=== PATIENT | female | born 1980 | race Hispanic/Latino ===

== ENCOUNTER 2021-08-14 15:34 | Emergency (ER) | payer OTHER ==
[~2021-08-14] VITALS: Ht 152.4 cm; Wt 81.6 kg
[2021-08-14 16:48] LABS: BASOPHILS % (AUTO) 0.4 % (0.0-5.0); HEMATOCRIT 37.4 % (36-48); LYMPHOCYTES % (AUTO) 24.2 % (21.0-51.0); MEAN CORPUSCULAR HEMOGLOBIN 29.1 pg (27.0-33.0); MEAN CORPUSCULAR HGB CONC 33.2 g/dL (32.0-36.0); MEAN CORPUSCULAR VOLUME 87.8 fL (79-99); MONOCYTES % (AUTO) 6.4 % (3.0-13.0); NEUTROPHILS % (AUTO) 64.6 % (40.0-77.0); PLATELET COUNT (AUTO) 207 K/uL (130-400); RED BLOOD CELL COUNT(AUTO) 4.26 MIL/uL (4.00-5.50); RED CELL DISTRIBUTION WIDTH 13.4 % (11.0-15.5); WHITE BLOOD COUNT (AUTO) 9.9 K/uL (4.8-10.8)
[2021-08-14 17:00] LABS: CREATININE 0.6 mg/dL (0.5-1.5); POTASSIUM 3.7 mmol/L (3.5-5.1)
[2021-08-14 17:29] LABS: ALBUMIN 3.7 g/dL (3.5-5.0); BILIRUBIN,TOTAL 0.3 mg/dL (0.2-1.0); TOTAL PROTEIN, SERUM 7.3 g/dL (6.0-8.3)
[2021-08-14] MEDS ORDERED: PNV1TABL17 PO (18:06)
[2021-08-14 18:07] VITALS: BP 115/67
== END 2021-08-14 18:22 | disposition home or self-care (01) ==
LOC: EDH 15:34
DX: O20.9 Hemorrhage in early pregnancy, unspecified (principal); Z3A.01 Less than 8 weeks gestation of pregnancy; Z90.49 Acquired absence of other specified parts of digestive tract
CPT/HCPCS: 36415; 76801; 80053; 84702; 85025; 86850; 86900; 86901

== ENCOUNTER 2021-10-02 06:19 | Day surgery (SDC) | payer MEDICAID, OTHER ==
[2021-10-01 16:42] LABS: BASOPHILS % (AUTO) 0.3 % (0.0-5.0); EOSINOPHILS % (AUTO) 3.5 % (0.0-8.0); HEMATOCRIT 39.5 % (36-48); LYMPHOCYTES % (AUTO) 20.9 % (21.0-51.0); MEAN CORPUSCULAR HEMOGLOBIN 29.1 pg (27.0-33.0); MEAN CORPUSCULAR HGB CONC 33.2 g/dL (32.0-36.0); MEAN CORPUSCULAR VOLUME 87.8 fL (79-99); MONOCYTES % (AUTO) 5.4 % (3.0-13.0); NEUTROPHILS % (AUTO) 69.5 % (40.0-77.0); PLATELET COUNT (AUTO) 218 K/uL (130-400); RED CELL DISTRIBUTION WIDTH 12.4 % (11.0-15.5); WHITE BLOOD COUNT (AUTO) 10.2 K/uL (4.8-10.8)
[2021-10-01 17:01] VITALS: BP 161/74
[~2021-10-02] VITALS: Ht 157.5 cm; Wt 83.1 kg
[2021-10-02 06:40] VITALS: BP 108/64
[2021-10-02] MEDS: LACTATED RINGERS 1000ML 1,000 ML IV ONE (06:47)
[2021-10-02] MEDS ORDERED: SUCCINYLCHOLINE CHLORIDE 20 MG/ML 10 ML VIAL ONE (07:37)
[2021-10-02] MEDS ORDERED: DEXAMETHASONE SOD PHOSPHATE 10MG/ML 1ML VIAL ONE ×2 (07:37→07:52)
[2021-10-02] MEDS ORDERED: GLYCOPYRROLATE 1 MG/5 ML SYRINGE ONE (07:37)
[2021-10-02] MEDS ORDERED: NEOSTIGMINE 5MG/5ML SYR IV ONE (07:37)
[2021-10-02] MEDS ORDERED: LIDOCAINE PF 100MG/5ML (2%) SYRINGE 5ML ONE (07:37)
[2021-10-02] MEDS ORDERED: ROCURONIUM 10MG/1ML SYR 10 MG/ML ML ONE (07:37)
[2021-10-02] MEDS ORDERED: ONDANSETRON 4MG INJ ONE (07:38)
[2021-10-02] MEDS ORDERED: PROPOFOL 10 MG/ML 20ML VIAL IV ONE (07:38)
[2021-10-02] MEDS ORDERED: FENTANYL CITRATE PF 50 MCG/1 ML 2ML VIAL ONE (07:38)
[2021-10-02] MEDS ORDERED: MIDAZOLAM HCL 1 MG/ML 2ML VIAL ONE (07:38)
[2021-10-02] MEDS ORDERED: CEFAZOLIN SODIUM 1 GM VIAL IVP ONE (08:00)
[2021-10-02] MEDS ORDERED: OXYTOCIN 10 USP UNITS/ML ONE (08:01)
[2021-10-02] MEDS ORDERED: METHYLERGONOVINE MALEATE 0.2 MG/1 ML ML ONE (08:01)
[2021-10-02] MEDS: METHYLERGONOVINE MALEATE 0.2 MG/1 ML ML IM ONE (08:02)
[2021-10-02] MEDS ORDERED: MEPERIDINE-PF 25 MG/ML SYG ONE (08:37)
[2021-10-02 09:00] VITALS: BP 103/66
[2021-10-02 09:15] VITALS: BP 94/60
[2021-10-02] MEDS: IBUPROFEN 800 MG TAB PO SCH (09:26)
[2021-10-02 09:30] VITALS: BP 97/59
[2021-10-02 09:45] VITALS: BP 94/58
[2021-10-02 10:00] VITALS: BP 101/58
== END 2021-10-02 10:15 | disposition home or self-care (01) ==
LOC: SUH 06:19 → DAH 06:19 → SUH 10:15
PROVIDERS: ATTEND Obstetrics & Gynecology
DX: O02.1 Missed abortion (principal); Z90.49 Acquired absence of other specified parts of digestive tract
CPT/HCPCS: 85025; 86850; 86900; 86901; 87426; 36415; 59821; 88305; A6260; A4663; J7120 ×2; J3010; J0690; J3490 ×3; J1100 ×2; J2710; J0330; J2250; J2590; J2405; J2175; J2210 ×2; A4215; A4223; A4657; A4335; A4222; A4221; A4600; A4510; J2001; J2704